=== PATIENT | female | born 1965 | race Asian ===

== ENCOUNTER 2018-08-08 09:17 | Day surgery (SDC) | payer OTHER ==
[~2018-08-08] VITALS: Ht 157.5 cm; Wt 63.1 kg
[2018-08-08 10:07] VITALS: Ht 157.5 cm; Wt 63.1 kg
[2018-08-08] MEDS ORDERED: METFORMIN (10:12)
[2018-08-08] MEDS ORDERED: JANUVIA (10:12)
[2018-08-08 10:13] VITALS: BP 142/72; PULSE 80; RESP 16
[2018-08-08] MEDS ORDERED: SIMVASTATIN (10:13)
[2018-08-08] MEDS ORDERED: MIDAZOLAM 1 MG/ML 2 ML INJ ONE ×2 (11:39→11:40)
[2018-08-08] MEDS ORDERED: FENTAnyl 50 MCG/ML VIAL ONE (11:39)
[2018-08-08 12:07] VITALS: BP 98/68; RESP 20
== END 2018-08-08 14:04 | disposition home or self-care (01) ==
LOC: GIL 09:17
PROVIDERS: ATTEND Internal Medicine Gastroenterology
DX: Z12.11 Encounter for screening for malignant neoplasm of colon (principal); K64.9 Unspecified hemorrhoids; E11.9 Type 2 diabetes mellitus without complications
CPT/HCPCS: 45378; 82962; J2250; J3010